=== PATIENT | male | born 1960 | race Two or more races ===

== ENCOUNTER 2016-09-02 17:00 | Emergency (ER) | payer MEDICARE, OTHER ==
[~2016-09-02] VITALS: Wt 67.0 kg
[2016-09-02 21:22] VITALS: BP 186/97; PULSE 70; RESP 18
--- NOTE | 2016-09-02 21:34 | ERD ---
ER Documentation Chief Complaint Date/Time DATE: 09/02/16 TIME: 21:31 Chief Complaint hearing loss for the past few years. no recent trauma. no neuro deficit HPI 56-year-old male who presents to the emergency room with his family member. The patient has recently immigrated to [facility]. The patient has a long- standing history of hearing loss. He states that he may have dropped his hearing aid and it is not working as well as usual. The patient has been having gradual decreased hearing over the last several years if not longer. He denies any headaches, no recent or sudden hearing loss. The family does not know where to follow-up and is requesting referral to hearing and speech assistant. They have just recently received [employer]. The patient has no other complaints. ROS All systems reviewed and are negative except as per history of present illness. Medications Home Meds No Active Prescriptions or Reported Meds Allergies Allergies: Coded Allergies: No Known Allergy (Unverified , 09/02/16) PMhx/Soc History of Surgery: No Anesthesia Reaction: No Hx Neurological Disorder: No Hx Respiratory Disorders: No Hx Cardiac Disorders: Yes (HTN, hypotension) Hx Psychiatric Problems: No Hx Miscellaneous Medical Probl: Yes (DM, hearing loss X15 yrs ago w/ hearing aid) Hx Alcohol Use: No Hx Substance Use: No Hx Tobacco Use: No Smoking Status: Never smoker FmHx Family History: No diabetes Physical Exam Vitals Vital Signs Date Time Temp Pulse Resp B/P Pulse Ox O2 Delivery O2 Flow Rate FiO2 09/02/16 21:22 70 18 186/97 98 Room Air 09/02/16 17:07 98.5 78 20 190/90 99 Physical Exam General: Well developed, well nourished, no acute distress Head: Normocephalic, atraumatic. Eyes: EOM intact ENT: Moist mucous membranes Neck: Full ROM Respiratory: No respiratory distress Cardiovascular: Good capillary refil Abdominal: Nondistended : Deferred MSK: No edema, no unilateral swelling, 5/5 strength Neurologic: Alert and oriented, moving all extremities, normal speech, steady gait Skin: No rash Psych: Normal mood Procedures/MDM The patient has a subacute process. His hearing loss is chronic and not acute. The patient has no headache and is otherwise extremely well-appearing. It appears that the family is here in the emergency room because they do not know where to go for the patient's hearing aid and follow-up. I have directed the patient and family member to a [facility] care clinic [facility]. Referral information provided for her ear nose and throat the major hospital. Local clinics were also provided to the patient. The patient will need outpatient primary care follow-up, ENT follow-up and possible audiology. The patient does not have an acute medical condition at this time. The patient will be discharged. Departure Diagnosis: Primary Impression: Hearing loss Laterality: bilateral Qualified Code: H91.93 - Hearing loss, bilateral Condition: Stable Patient Instructions: Understanding Hearing Loss Referrals: COMM[facility]ITY CLINICS YOU HAVE RECEIVED A MEDICAL SCREENING EXAM AND THE RESULTS INDICATE THAT YOU DO NOT HAVE A CONDITION THAT REQUIRES URGENT TREATMENT IN THE EMERGENCY DEPARTMENT. FURTHER EVALUATION AND TREATMENT OF YOUR CONDITION CAN WAIT UNTIL YOU ARE SEEN IN YOUR DOCTORS OFFICE WITHIN THE NEXT 1-2 DAYS. IT IS YOUR RESPONSIBILITY TO MAKE AN APPOINTMENT FOR FOLOW-UP CARE. IF YOU HAVE A PRIMARY DOCTOR --you should call your primary doctor and schedule an appointment IF YOU DO NOT HAVE A PRIMARY DOCTOR YOU CAN CALL OUR PHYSICIAN REFERRAL HOTLINE AT IF YOU CAN NOT AFFORD TO SEE A PHYSICIAN YOU CAN CHOSE FROM THE FOLLOWING [facility] [address] [facility]. [facility] [address] [facility] [facility] [address] [facility] [facility] [address] [facility] [address] [facility] [facility]. [address] [facility]. [facility] YOU HAVE RECEIVED A MEDICAL SCREENING EXAM AND THE RESULTS INDICATE THAT YOU DO NOT HAVE A CONDITION THAT REQUIRES URGENT TREATMENT IN THE EMERGENCY DEPARTMENT. FURTHER EVALUATION AND TREATMENT OF YOUR CONDITION CAN WAIT UNTIL YOU ARE SEEN IN YOUR DOCTORS OFFICE WITHIN THE NEXT 1-2 DAYS. IT IS YOUR RESPONSIBILITY TO MAKE AN APPOINTMENT FOR FOLOW-UP CARE. IF YOU HAVE A PRIMARY DOCTOR --you should call your primary doctor and schedule and appointment IF YOU DO NOT HAVE A PRIMARY DOCTOR YOU CAN CALL OUR PHYSICIAN REFERRAL HOTLINE AT . IF YOU CAN NOT AFFORD TO SEE A PHYSICIAN YOU CAN CHOSE FROM THE FOLLOWING [facility]: [facility] [address] [place] [address] [facility] [address] [place] [address] [facility] [address] [place] [address] [facility] URGENT CARE/[facility]CIAL[facility] ENT Clinic Referral for Hearing Loss Additional Instructions: Call your primary care doctor TOMORROW for an appointment during the next 1 WEEK.Tell the alumni secretary that you were referred from this facility.See the doctor sooner or return here if your condition worsens before your appointment time. KRISTAN MEANS MD Sep 02, 2016 21:33
== END 2016-09-02 21:26 | disposition home or self-care (01) ==
LOC: E/R 17:00
DX: H91.93 Unspecified hearing loss, bilateral (principal); E11.9 Type 2 diabetes mellitus without complications; I10 Essential (primary) hypertension
CPT/HCPCS: 99282